=== PATIENT | female | born 1985 | race African-American/Black ===

== ENCOUNTER 2017-10-13 10:59 | Emergency (ER) | payer MEDICAID ==
[~2017-10-13] VITALS: Ht 165.1 cm; Wt 64.0 kg
[~2017-10-13 10:59] MED LIST: NO MEDS
[2017-10-13 11:28] VITALS: BP 129/82
== END 2017-10-13 14:39 | disposition left against medical advice (07) ==
LOC: ER 12:15
DX: Z53.21 Procedure and treatment not carried out due to patient leaving prior to being seen by health care provider (principal)

== ENCOUNTER 2017-12-04 03:32 | Emergency (ER) | payer MEDICAID ==
[~2017-12-04] VITALS: Ht 165.1 cm; Wt 64.0 kg
[2017-12-04 03:40] VITALS: BP 123/69
== END 2017-12-04 09:01 | disposition left against medical advice (07) ==
LOC: ER 03:32
DX: M25.562 Pain in left knee (principal); Z53.21 Procedure and treatment not carried out due to patient leaving prior to being seen by health care provider